=== PATIENT | male | born 1945 | race Caucasian/White ===

== ENCOUNTER 2021-12-14 01:25 | Emergency (ER) | payer MEDICARE ==
[~2021-12-14] VITALS: Ht 185.5 cm; Wt 102.0 kg
--- OUTSIDE RECORDS SUMMARY | 2021-12-14 01:34 | XMS REPORT | Clinical Summary ---
Author Organization Unknown Address Unknown Phone Unavailable Care Team Providers Care Sustain Engineer Name Role Phone Dr. Melissa MENCHACA DO Unavailable Pillo Joe Unavailable Unavailable Social History No social history listed. Problems SNOMED Problem Status Date Discovered Last Modifie d Date Encounter for screening for malignant neoplasm of colo n Active 10/26/2021 10/26/2021 Generalized anxiety disorder Active 08/01/2013 10/26/2021 Essential (primary) hypertension Active 12/26/19 10 10/26/2021 Mixed hyperlipidemia Active 12/26/2009 021 Encounter for immunization Active 10/19/2021 1 12/19/2020 Benign prostatic hyperplasia without lower urina ry tract symptoms Active 10/15/2020 10/19/2021 Acute maxillary sinusitis, unspecified Active 07/19/2021 [id number] Bilateral primary osteoarthritis of knee Active 04/15/2021 04/15/2021 Body mass index [BMI] 29.0-29.9, adult Active 04/15/2021 Peripheral vascular disease, unspecified Active 10/15/2020 10/16/2020 Shortness of breath Active 10/15/2020 10/15/20 Body mass index (BMI) 29.0-29.9, adult Active 10/15/2020 Other oysterman (current) drug therapy Active 04/01/2020 Unilateral inguinal hernia, without obstruction or gangrene, not specified as recurrent Active 12/19/2019 12/19/2019 [id number] Retention of urine, unspecified Active 0 12/19/2019 Screening for cancer of colon Active 04/17/2019 04/17/2019 Body Mass Index 28.0-28.9, adult Active 05/01/20 18 05/22/2019 Body mass index (BMI) 28.0-28.9, adult Active 05/22/2019 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 04/18/2018 Renal mass Active 04/17/2018 04/18/2018 253412886 Microscopic hematuria Active 04/11/201804/17 989367867 Benign essential microscopic hematuria Active 04/17/2019 Osteoarthritis of ankle and foot Active 06/09/20 16 06/09/2016 Primary osteoarthritis, right ankle and foot Active 06/09/2016 06/09/2016 Body Mass Index 29.0-29.9, adult Active 06/09/20 16 04/18/2018 Encounter for screening for malignant neoplasm of pros maki Active 01/11/2016 09/27/2017 Screening for prostate cancer Active 01/11/2016 09/27/2017 Atopic dermatitis, unspecified Active 09/29/2015 09/29/2015 Eczema Active 09/29/2015 09/29/2015 [id number] Generalized osteoarthritis - multiple sites, NEC Activ e 12/09/2014 01/09/2015 02112457 Hydronephrosis Active 09/19/2013 04/17/2018 [id number] Other hydronephrosis Active 09/19/2013 018 [id number] Generalized anxiety disorder Active 08/01/2013 05/22/2019 7380781 HTN Active 12/26/2009 05/22/2019 591536481 Mixed hyperlipidemia Active 12/26/2009 019 Medications Brand Strength Dose/Route/Frequency RxNorm Code Date Started Date Discontinued Status amLODIPine 10 mg oral tablet TAKE 1 TABLET EVERY DAY 349327 020 Current lisinopriL 10 mg oral tablet TAKE 1 TABLET EVERY DAY 320606 020 Current Bystolic 10 mg oral tablet Take 1 tablet by mouth once daily 362162 12/26/2009 Current meloxicam 15 mg oral tablet TAKE 1 TABLET EVERY DAY 419552 10/22/20 19 Current rosuvastatin 40 mg oral tablet TAKE 1 TABLET EVERY DAY 533349 12/19 Current ALPRAZolam 0.5 mg oral tablet take 1 tablet (0.5 m g) by oral route 2 times a day 724012 04/19/2021 Current Allergies No allergies listed. Procedures Code System Code Description Date Ordered Status CPT 23486 Collection of venous blood by venipunctur e 10/19/2021 completed CPT 06272 Fluad High Dose 10/19/2021 completed CPT 1000F Tobacco use assessed (CAD, CAP, COPD, PV) 1 (DM)4 10/26/2021 completed CPT 1036F Current tobacco non-user (CAD, CAP, COPD, PV)1 (DM)4 10/26/2021 completed CPT 3288F Falls risk assessment documented 10/26/20 21 completed Immunizations Date Vaccine Status CVX 05/06/2021 COVID-19, mRNA, LNP-S, PF, 100 mcg/0.5 mL dose C ompleted 207 10/19/2021 Influenza vaccine, quadrivalent, adjuvan ozzy (FLUAD QUAD [id number]) Completed 205 09/24/2019 Influenza, high dose seasonal Completed 13 5 07/15/2020 Influenza, high dose seasonal Completed 13 5 06/03/2021 SARS-COV-2 (COVID-19) vaccine, UNSPECIFIED Compl eted 213 01/11/2016 Prevnar 13 (Pneumococcal PCV 13) Completed 133 07/05/2012 Fluzone (3 + years dose) Completed 141 08/01/2013 Fluzone (3 + years dose) Completed 141 09/19/2018 Fluad pf Completed 168 08/01/2014 Fluzone High-Dose pf (>=65 yr) Completed 1 35 09/29/2015 Fluzone High-Dose pf (>=65 yr) Completed 1 35 11/18/2016 Fluzone High-Dose pf (>=65 yr) Completed 1 35 10/04/2017 Fluzone High-Dose pf (>=65 yr) Completed 1 35 08/27/2011 PNEUMOVAX 23 (Pneumococcal PPV23) Completed 33 04/11/2018 Adacel (Tdap) Cancelled 115 Vital Signs No vital signs listed. Assessment * E78.2 Mixed hyperlipidemia * I10 Essential (primary) hypertension * F41.1 Generalized anxiety disorder * Z12.11 Encounter for screening for malignant neoplasm of colon Plan of Treatment * Mixed hyperlipidemia MEDICATIONS: (no change to current medication regimen) (see today's med list) RE COMMENDATIONS given include: exercise, low cholesterol/low fat diet, and weight loss. FOLLOW-UP: Schedule a follow-up visit in 6 months. Smoking Status: Nons moker Patient encounter documented using a qualified (non-CCHIT) certified EHR FOLLOW-UP: Schedule a follow-up visit in 6 months. Make a follow up appointment for the following fasting blood work CMP FLP Urine pro Fasting lab work is to be completed in 6 months. prior to follow up appointment.. * Orders: 41484 - Established patient outpatient visit, Moderate MDM and/or 30-39 minutes 1000F - Tobacco use assessed (CAD, CAP, COPD, PV)1 (DM)4 1036F - Current tobacco non-user (CAD, CAP, COPD, PV)1 (DM)4 G8448 - Patient encounter documented using a qualified (non-CCHIT) certified EHR * Essential (primary) hypertension MEDICATIONS: (no change to current medication regimen) (see today's med list) RE COMMENDATIONS given include: perform routine monitoring of blood pressure with h ome blood pressure cuff, exercise, reduction of dietary salt intake, weight loss , and stress reduction. FOLLOW-UP: Schedule a follow-up visit in 6 months. [facility] maria elena Status: Nonsmoker * Orders: 3288F - Falls risk assessment documented * Generalized anxiety disorder MEDICATIONS: (no change to current medication regimen) (see today's med list) RE COMMENDATIONS given include: avoidance of caffeine and stress reduction. FOLLOW -UP: Schedule a follow-up visit in 6 months. * Encounter for screening for malignant neoplasm of colon REFUSALS: Although discussed, the patient declined the following: colon cancer screening of any kind.. * Other Prescriptions: [Refilled] amLODIPine 10 mg oral tablet [TAKE 1 TABLET EVERY DAY], #90 (ninety) tablets, Refills: 1 (one) [Refilled] lisinopriL 10 mg oral tablet [TAKE 1 TABLET EVERY DAY], #90 (ninety) tablets, Refills: 1 (one) [Refilled] Bystolic 10 mg oral tablet [Take 1 tablet by mouth once daily], #90 ( ninety) tablets, Refills: 1 (one) [Refilled] meloxicam 15 mg oral tablet [TAKE 1 TABLET EVERY DAY], #90 (ninety) t ablets, Refills: 1 (one) [Refilled] rosuvastatin 40 mg oral tablet [TAKE 1 TABLET EVERY DAY], #90 (ninety ) tablets, Refills: 1 (one) [Refilled] ALPRAZolam 0.5 mg oral tablet [take 1 tablet (0.5 mg) by oral route 2 times a day ], #180 (one hundred and eighty) tablets, Refills: 1 (one) Referrals No referral reasons listed. Functional Status No Functional Status Listed Mental Status * NEGATIVE Goals No Goals listed. Health Concerns No Health Concerns listed. Health Status Evaluations/Outcomes No Evaluations/Outcomes listed. Interventions No Interventions listed. Lab Test & Results Date Performed Test Result Status 10/22/2021 Comp. Metabolic Panel (14): Glucose 96 mg/dL completed 10/22/2021 Comp. Metabolic Panel (14): BUN 27 mg/dL completed 10/22/2021 Comp. Metabolic Panel (14): Creatinine 1.31 mg/d L completed 10/22/2021 Comp. Metabolic Panel (14): eGFR If NonAfricn Am 52 mL/min/1.73 completed 10/22/2021 Comp. Metabolic Panel (14): eGFR If Africn Am 60 mL/min/1.73 completed 10/22/2021 Comp. Metabolic Panel (14): BUN/Creatinine Ratio 21 completed 10/22/2021 Comp. Metabolic Panel (14): Sodium 141 mmol/L completed 10/22/2021 Comp. Metabolic Panel (14): Potassium 4.5 mmol/L completed 10/22/2021 Comp. Metabolic Panel (14): Chloride 105 mmol/L completed 10/22/2021 Comp. Metabolic Panel (14): Carbon Dioxide, Tota l 23 mmol/L completed 10/22/2021 Comp. Metabolic Panel (14): Calcium 10.0 mg/dL completed 10/22/2021 Comp. Metabolic Panel (14): Protein, Total 6.5 g /dL completed 10/22/2021 Comp. Metabolic Panel (14): Albumin 4.5 g/dL completed 10/22/2021 Comp. Metabolic Panel (14): Globulin, Total 2.0 g/dL completed 10/22/2021 Comp. Metabolic Panel (14): A/G Ratio 2.3 completed 10/22/2021 Comp. Metabolic Panel (14): Bilirubin, Total 0.6 mg/dL completed 10/22/2021 Comp. Metabolic Panel (14): Alkaline Phosphatase 97 IU/L completed 10/22/2021 Comp. Metabolic Panel (14): AST (SGOT) 21 IU/L completed 10/22/2021 Comp. Metabolic Panel (14): ALT (SGPT) 12 IU/L completed 10/22/2021 Lipid Panel: Cholesterol, Total 152 mg/dL completed 10/22/2021 Lipid Panel: Triglycerides 175 mg/dL compl eted 10/22/2021 Lipid Panel: HDL Cholesterol 47 mg/dL com pleted 10/22/2021 Lipid Panel: VLDL Cholesterol Brenton 30 mg/dL completed 10/22/2021 Lipid Panel: LDL Chol Calc (NIH) 75 mg/dL completed 10/22/2021 Lipid Panel: Comment: cancelled 10/22/2021 Prostate-Specific Ag: Prostate Specific Ag 3.8 n g/mL completed Test Code Code System Panel Description Date Ordered Note 22056 CPT Comprehensive metabo lic panel (Albumin, Bilirubin, Ca, CO2, Cl, Creatinine, Glu, alkaline phosphatas 10/19/2021 Signed off by Kimberly Pepe on 10-19-2021 46556 CPT Lipid panel (total cholesterol, HDL, trig lycerides) 10/19/2021 Signed off by Kimberly Pepe on 10-19-2021 43364 CPT Prostate specific antigen, total 10/19/20 Signed off by Kimberly Pepe on 10-19-2021 Encounter Diagnosis * Mixed hyperlipidemia Patient presents with mixed hyperlipidemia. Current treatment includes Crestor and a low cholesterol/low fat diet. Compliance with treatment has been poor; he skips some medication doses and does not follow a diet and exercise regimen. He denies experiencing any hypercholesterolemia related symptoms. Most recent lab tests include LDL: 75 (mg/dL) (10/19/2021), HDL: 47 (mg/dL) (10/19/2021), To moe Cholesterol: 152 (mg/dL) (10/19/2021), Triglycerides: 175 (mg/dL) (), VLDL Cholesterol: 30 (mg/dL) (10/19/2021). * Essential (primary) hypertension Current nonpharmacologic treatment includes low sodium diet and exercise. His c urrent cardiac medication regimen includes a beta-tevin, an BRAYAN inhibitor, and a calcium channel tevin. Review of his blood pressure log reveals systolics in the 120s and diastolics in the 70s. He is tolerating the medication well wit hout side effects. Compliance with treatment has been fair; he skips some medic ation doses due to forgetfulness and does not follow a diet and exercise regimen . * Generalized anxiety disorder With regard to the generalized anxiety disorder, his symptom complex includes ap prehension and insomnia. True panic attacks apparently do not occur. The frequ ency of symptoms is several times per week. Current treatment includes a schedu led (rather than p.r.n.) benzodiazepine. Previous attempts at treatment have in cluded a scheduled (rather than p.r.n.) benzodiazepine. He denies pertinent pas t medical history.
--- OUTSIDE RECORDS SUMMARY | 2021-12-14 01:34 | XMS REPORT | Clinical Summary ---
Author Organization Unknown Address Unknown Phone Unavailable Care Team Providers Care [employer] Weigher Name Role Phone Kimberly Pepe Unavailable Unavailable Social History No social history listed. Problems SNOMED Problem Status Date Discovered Last Modifie d Date Encounter for immunization Active 10/19/2021 1 12/19/2020 Mixed hyperlipidemia Active 12/26/2009 021 Essential (primary) hypertension Active 12/26/19 10 10/19/2021 Benign prostatic hyperplasia without lower urina ry tract symptoms Active 10/15/2020 10/19/2021 Acute maxillary sinusitis, unspecified Active 07/19/2021 Encounter for screening for malignant neoplasm of colo n Active 04/15/2021 04/15/2021 [id number] Bilateral primary osteoarthritis of knee Active 04/15/2021 04/15/2021 Generalized anxiety disorder Active 08/01/2013 04/15/2021 Body mass index [BMI] 29.0-29.9, adult Active 04/15/2021 Peripheral vascular disease, unspecified Active 10/15/2020 10/16/2020 Shortness of breath Active 10/15/2020 10/15/20 20 Body mass index (BMI) 29.0-29.9, adult Active 10/15/2020 Other halfway (current) drug therapy Active 04/01/2020 Unilateral inguinal hernia, without obstruction or gangrene, not specified as recurrent Active 12/19/2019 12/19/2019 [id number] Retention of urine, unspecified Active 0 12/19/2019 Screening for cancer of colon Active 04/17/2019 04/17/2019 Body Mass Index 28.0-28.9, adult Active 05/01/20 18 05/22/2019 Body mass index (BMI) 28.0-28.9, adult Active 05/22/2019 Renal mass Active 04/17/2018 04/18/2018 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 04/18/2018 162148240 Microscopic hematuria Active 04/11/201804/17 654944644 Benign essential microscopic hematuria Active 04/17/2019 Osteoarthritis of ankle and foot Active 06/09/20 16 06/09/2016 Primary osteoarthritis, right ankle and foot Active 06/09/2016 06/09/2016 Body Mass Index 29.0-29.9, adult Active 06/09/20 16 04/18/2018 Encounter for screening for malignant neoplasm of pros maki Active 01/11/2016 09/27/2017 Screening for prostate cancer Active 01/11/2016 09/27/2017 Atopic dermatitis, unspecified Active 09/29/2015 09/29/2015 Eczema Active 09/29/2015 09/29/2015 126058775 Generalized osteoarthritis - multiple sites, NEC Activ e 12/09/2014 01/09/2015 27129460 Hydronephrosis Active 09/19/2013 04/17/2018 69701439 Other hydronephrosis Active 09/19/2013 018 95633717 Generalized anxiety disorder Active 08/01/2013 05/22/2019 3334121 HTN Active 12/26/2009 05/22/2019 254410927 Mixed hyperlipidemia Active 12/26/2009 019 Medications Brand Strength Dose/Route/Frequency RxNorm Code Date Started Date Discontinued Status amLODIPine 10 mg oral tablet TAKE 1 TABLET EVERY DAY 352128 020 Current lisinopriL 10 mg oral tablet TAKE 1 TABLET EVERY DAY 781265 020 Current Bystolic 10 mg oral tablet Take 1 tablet by mouth once daily 370489 12/26/2009 Current meloxicam 15 mg oral tablet TAKE 1 TABLET EVERY DAY 466748 10/22/20 19 Current rosuvastatin 40 mg oral tablet TAKE 1 TABLET EVERY DAY 173614 12/19 Current ALPRAZolam 0.5 mg oral tablet Take 1 tablet by mouth twice daily 181241 10/22/2019 Current ALPRAZolam 0.5 mg oral tablet take 1 tablet (0.5 m g) by oral route 2 times a day 702607 04/19/2021 Current azithromycin 250 mg oral tablet take 2 tablets (500 mg) by oral route once daily for 1 day then 1 tablet (250 mg) by oral route once daily for 4 days 698614 07/19/2021 Current Medrol (Umer) 4 mg oral Tablet, Dose Pack take by oral route as directed per package instructions [id number] 07/19/2021 Current Allergies No allergies listed. Procedures Code System Code Description Date Ordered Status CPT 13316 Collection of venous blood by venipunctur e 10/19/2021 completed CPT 39261 Fluad High Dose 10/19/2021 completed Immunizations Date Vaccine Status CVX 05/06/2021 COVID-19, mRNA, LNP-S, PF, 100 mcg/0.5 mL dose C ompleted 207 10/19/2021 Influenza vaccine, quadrivalent, adjuvan ozzy (FLUAD QUAD [id number]) Completed 205 09/24/2019 Influenza, high dose seasonal [...] hyperlipidemia * I10 Essential (primary) hypertension * N40.0 Benign prostatic hyperplasia without lower urinary tract symptoms * Z23 Encounter for immunization Plan of Treatment * Mixed hyperlipidemia LABORATORY: Labs ordered to be performed today include, CMP, and lipid panel. * Orders: 87068 - Collection of venous blood by venipuncture 23713 - Comprehensive metabolic panel (Albumin, Bilirubin, Ca, CO2, Cl, Creatini ne, Glu, alkaline phosphatase, K, tot protein, ALT, AST, BUN) 21338 - Lipid panel (total cholesterol, HDL, triglycerides) * Essential (primary) hypertension * Benign prostatic hyperplasia without lower urinary tract symptoms LABORATORY: Labs ordered to be performed today include PSA. * Orders: 07225 - Prostate specific antigen, total * Encounter for immunization Immunizations MRE flu vaccine admin fee and Fluad High Dose * Orders: [id number] - Administration of influenza vaccine when no physician fee schedule servi ce on the same day Referrals No referral reasons listed. Functional Status No Functional Status Listed Mental Status * NEGATIVE Goals No Goals listed. Health Concerns No Health Concerns listed. Health Status Evaluations/Outcomes No Evaluations/Outcomes listed. Interventions No Interventions listed. Lab Results No lab results listed.
--- NOTE | 2021-12-14 02:15 | ED Cough/URI ---
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 Source: patient Exam Limitations: no limitations (DAJA MCDONALD STUDENT) History of Present Illness Date Seen by Provider: Dec 14, 2021 Time Seen by Provider: 02:00 Initial Comments Patient is a 76yoM with history of hyperlipidemia and hypertension who presents via private vehicle to ED with cc of cough and "raw throat". He awoke from sleep around 12:30-1am with cough and sore throat. He believes he has a hiatal hernia and describes heartburn symptoms. Patient ate chicken and dumplings for dinner and went to bed feeling fine. He denies diarrhea, otalgia, fever and shortness of air. He does report some nausea. He denies fever and sick contacts and has been vaccinated for Covid ~6 months ago. He quit smoking "many years ago" and does not drink alcohol. He lives at home with his sister who does not have any similar symptoms. Timing/Duration: just prior to arrival Severity/Quality: mild Associated Symptoms: cough, headache, sore throat (DAJA MCDONALD STUDENT) Allergies and Home Medications Allergies Coded Allergies: No Known Drug Allergies (Unverified , 12/14/21) Patient Home Medication List Home Medication List Reviewed: Yes (KOLBY MEHTA MD) Omeprazole (Omeprazole) 20 Mg Tab.rap.dr, 20 MG PO DAILY Prescribed by: KOLBY MEHTA on 12/14/21 034 Rivaroxaban (Xarelto) 20 Mg Tablet, 20 MG PO DAILY Prescribed by: KOLBY MEHTA on 12/14/21 0341 Review of Systems Review of Systems Constitutional: No chills, No diaphoresis EENTM: throat pain; No ear pain, No vision loss, No nose congestion Respiratory: cough; No hemoptysis Cardiovascular: No edema, No palpitations Gastrointestinal: No abdominal pain, No diarrhea, No hematemesis; heartburn; No melena; nausea; No vomiting Genitourinary: No dysuria, No frequency, No hematuria Musculoskeletal: No muscle pain, No muscle weakness Skin: no symptoms reported Psychiatric/Neurological: No Symptoms Reported Hematologic/Lymphatic: No Symptoms Reported Immunological/Allergic: no symptoms reported (AASHISHFarFariaAkinDAJA DEONTICS STUDENT) Past Esrvcoc-Qyuwin-Cmkbqq Hx Patient Social History Smoking Status: Former Smoker Substance use?: No Alcohol Use?: No (AASHISHFarFariaAkinPotential STUDENT) Immunizations Up To Date Influenza Vaccine Up-to-Date: Yes; Up-to-Date Second COVID19 Vaccination Jhonatan: STATES HAS HAD 2 COVID VACCINES (TeralyticsAkin,Bringrr) Past Medical History Surgery/Hospitalization HX: HTN HIGH CHOLESTEROL (AASHISHFarFariaAkinPotential STUDENT) Physical Exam Vital Signs - First Documented 12/14/21 01:40 Temp 36.2 Pulse 79 Resp 18 B/P (MAP) 128/78 (95) Pulse Ox 94 O2 Delivery Room Air (KOLBY MEHTA MD) Capillary Refill : Less Than 3 Seconds (AASHISHMyVRVIVIANEDAJA DEONTICS STUDENT) Height: '" Weight: lbs. oz. kg; 29.00 BMI Method: General Appearance: WD/WN, no apparent distress Eyes: Bilateral Eye Normal Inspection HEENT: PERRL/EOMI, pharynx normal; No pharyngeal erythema Neck: non-tender, full range of motion, supple, normal inspection Respiratory: chest non-tender, no respiratory distress, no accessory muscle use, wheezing Cardiovascular: normal peripheral pulses, no edema, no JVD, no murmur, irregularly irregular Gastrointestinal: normal bowel sounds, non tender, soft Extremities: normal range of motion, non-tender, normal inspection, no pedal edema, no calf tenderness, normal capillary refill Neurologic/Psychiatric: vp product management II-XII nml as tested, no motor/sensory deficits, alert, normal mood/affect, oriented x 3 Skin: normal color, warm/dry Lymphatic: no adenopathy (AASHISHMyVRDAJA PAN DEONTICS STUDENT) Progress/Results/Core Measures Suspected Sepsis SIRS Temperature: Pulse: 79 Respiratory Rate: 18 Blood Pressure 128 /78 Mean: 95 (AASHISHFarFariaAkin,DAJA DEONTICS STUDENT) SIRS Laboratory Tests 12/14/21 02:40: White Blood Count 8.9 (KOLBY MEHTA MD) Results/Orders Lab Results Laboratory Tests Test 12/14/21 02:40 Range/Units White Blood Count 8.9 4.3-11.0 10^3/uL Red Blood Count 4.60 4.30-5.52 10^6/uL Hemoglobin 14.6 13.3-17.7 g/dL Hematocrit 44 40-54 % Mean Corpuscular Volume 95 80-99 fL Mean Corpuscular Hemoglobin 32 25-34 pg Mean Corpuscular Hemoglobin Concent 33 32-36 g/dL Red Cell Distribution Width 12.9 10.0-14.5 % Platelet Count 162 130-400 10^3/uL Mean Platelet Volume 10.2 9.0-12.2 fL Immature Granulocyte % (Auto) 0 % Neutrophils (%) (Auto) 77 H 42-75 % Lymphocytes (%) (Auto) 14 12-44 % Monocytes (%) (Auto) 7 0-12 % Eosinophils (%) (Auto) 2 0-10 % Basophils (%) (Auto) 0 0-10 % Neutrophils # (Auto) 6.8 1.8-7.8 10^3/uL Lymphocytes # (Auto) 1.2 1.0-4.0 10^3/uL Monocytes # (Auto) 0.7 0.0-1.0 10^3/uL Eosinophils # (Auto) 0.1 0.0-0.3 10^3/uL Basophils # (Auto) 0.0 0.0-0.1 10^3/uL Immature Granulocyte # (Auto) 0.0 0.0-0.1 10^3/uL Sodium Level 146 H 135-145 MMOL/L Potassium Level 4.1 3.6-5.0 MMOL/L Chloride Level 106 98-107 MMOL/L Carbon Dioxide Level 23 21-32 MMOL/L Anion Gap 17 H 5-14 MMOL/L Blood Urea Nitrogen 23 H 7-18 MG/DL Creatinine 1.40 H 0.60-1.30 MG/DL Estimat Glomerular Filtration Rate 52 BUN/Creatinine Ratio 16 Glucose Level 115 H 70-105 MG/DL Calcium Level 10.0 8.5-10.1 MG/DL Troponin I < 0.028 <0.028 NG/ML (KOLBY MEHTA MD) My Orders Orders - KOLBY MEHTA MD Ed Iv/Invasive Line Start (12/14/21 02:20) Cbc With Automated Diff (12/14/21 02:20) Basic Metabolic Panel (12/14/21 02:20) Ekg Tracing (12/14/21 02:20) Chest 1 View, Ap/Pa Only (12/14/21 02:20) Troponin I Hallie (12/14/21 02:20) Sucralfate Tablet (Carafate Tablet) (12/14/21 02:30) Antacid Suspension (Mylanta Suspension (12/14/21 02:30) Lidocaine 2% Viscous 15 Ml (Xylocaine Vi (12/14/21 02:30) Ondansetron Injection (Zofran Injectio (12/14/21 03:45) Pantoprazole Injection (Protonix Injecti (12/14/21 03:45) (KOLBY MEHTA MD) Medications Given in ED (KOLBY MEHTA MD) Vital Signs/I&O 12/14/21 12/14/21 12/14/21 01:40 01:40 04:59 Temp 36.2 36.2 Pulse 79 93 Resp 18 20 B/P (MAP) 128/78 (95) 116/73 Pulse Ox 94 95 O2 Delivery Room Air Room Air Room Air (KOLBY MEHTA MD) Vital Signs/I&O Capillary Refill : Less Than 3 Seconds (DAJA MCDONALD MED STUDENT) Blood Pressure Mean: 95 Progress Note #1: Time: 03:31 Progress Note re-checked, feels about the same. Labs look good. He states feels slightly better in the throat but still a little nauseated, heartburn feeling. Talked to him about the Afib and need to follow up BRITANY with his PCP. Will start him on xarelto for stroke prophylaxis, Going to give him protonix and zofran here and re-evaluate in about 20 minutes. Progress Note #2: Time: 04:18 Progress Note states hes starting to feel better, still a little queasy. will let him sip on some water a few minutes and then get him discharged home. (KOLBY MEHTA MD) ECG Initial ECG Impression Date: Dec 14, 2021 Initial ECG Impression Time: 02:30 Initial ECG Rate: 93 Initial ECG Rhythm: A Fib/Flutter Initial ECG Impression: Atrial Fibrillation Initial ECG Comparisson: No Previous ECG Available (KOLBY MEHTA MD) Diagnostic Imaging Diagonstic Imaging: Xray Plain Films/CT/US/NM/MRI: chest Comments cardiomegaly, clear lungs, no effusions or infiltrates, normal mediastinal structures; Interpreted by me. Reviewed: Reviewed by Me (KOLBY MEHTA MD) Departure Impression Primary Impression: GERD (gastroesophageal reflux disease) Qualified Codes: K21.9 - Gastro-esophageal reflux disease without esophagitis Additional Impression: New onset atrial fibrillation Disposition: 01 HOME, SELF-CARE Condition: Stable Departure-Patient Inst. Decision time for Depature: 03:34 (KOLBY MEHTA MD) Referrals: RANJIT CHRISTENSEN DO (PCP/Family) Primary Care Physician Patient Instructions: Atrial Fibrillation (DC), Acid Reflux and Gastroesophageal Reflux Disease in Adults Add. Discharge Instructions: Please call Dr Christensen' office today for a follow up appointment soon this week, regarding the heartburn symptoms as well as the Irregular Heartbeat - Atrial Fibrillation. We have prescribed a blood thinner medication caller Edrelcorona, you need take this once a day with an evening meal (it has to be taken with food). This may cause you to bruise more easily. You can pick this up at [facility] on in [place]. We have also prescribed an acid credit analysis manager medication called Omeprazole. You will need to take this once a day. Come back to the Emergency Department if you have any worsening symptoms or new or emergent concerns, especially bloody nose or blood in your stool or urine. Scripts Rivaroxaban (Xarelto) 20 Mg Tablet 20 MG PO DAILY for 30 Days, #30 TAB with evening meal Prov: KOLBY MEHTA MD 12/14/21 Omeprazole (Omeprazole) 20 Mg Tab.rap. 20 MG PO DAILY for 30 Days, #30 EA Prov: KOLBY MEHTA MD 12/14/21 Verification and Attestation of Medical Student E/M Service A medical student performed and documented this service in my presence. I reviewed and verified all information documented by the medical student and made modifications to such information, when appropriate. I personally performed the physical exam and medical decision making. Kolby Mehta, Dec 14, 2021,03:34 (KOLBY MEHTA MD) DAJA MCDONALD MED STUDENT Dec 14, 2021 02:15 KOLBY MEHTA MD Dec 14, 2021 02:47
[2021-12-14] MEDS ORDERED: SUCRALFATE 1 GM (CARAFATE) TAB PO ONE (02:30)
[2021-12-14] MEDS ORDERED: LIDOCAINE 2% VISCOUS 15 ML UDC PO ONE (02:30)
[2021-12-14] MEDS ORDERED: ANTACID SUSP 30 ML UDC (MYLANTA) PO ONE (02:30)
[2021-12-14 02:57] LABS: BASOPHILS % (AUTO) 0 % (0-10); EOSINOPHILS # (AUTO) 0.1 10^3/uL (0.0-0.3); EOSINOPHILS % (AUTO) 2 % (0-10); HEMATOCRIT 44 % (40-54); HEMOGLOBIN 14.6 g/dL (13.3-17.7); LYMPHOCYTES # (AUTO) 1.2 10^3/uL (1.0-4.0); LYMPHOCYTES % (AUTO) 14 % (12-44); MEAN CORPUSCULAR HEMOGLOBIN 32 pg (25-34); MEAN CORPUSCULAR HGB CONC 33 g/dL (32-36); MEAN CORPUSCULAR VOLUME 95 fL (80-99); MEAN PLATELET VOLUME 10.2 fL (9.0-12.2); MONOCYTES # (AUTO) 0.7 10^3/uL (0.0-1.0); MONOCYTES % (AUTO) 7 % (0-12); NEUTROPHILS # (AUTO) 6.8 10^3/uL (1.8-7.8); NEUTROPHILS % (AUTO) 77 % (42-75); PLATELET COUNT 162 10^3/uL (130-400); WHITE BLOOD COUNT 8.9 10^3/uL (4.3-11.0)
[2021-12-14 03:07] LABS: CHLORIDE 106 MMOL/L (98-107); POTASSIUM 4.1 MMOL/L (3.6-5.0); SODIUM 146 MMOL/L (135-145)
[2021-12-14 03:09] LABS: GLUCOSE 115 MG/DL (70-105)
[2021-12-14 03:11] LABS: CARBON DIOXIDE 23 MMOL/L (21-32)
[2021-12-14 03:13] LABS: GFR ESTIMATED 52
[2021-12-14 03:14] LABS: BUN/CREATININE RATIO 16
[2021-12-14] MEDS ORDERED: RIVA20TA PO (03:41)
[2021-12-14] MEDS ORDERED: OMEP-401 PO (03:41)
[2021-12-14] MEDS ORDERED: ONDANSETRON 4 MG/2 ML (SDV) Z0FRAN IVP ONE (03:45)
[2021-12-14] MEDS ORDERED: PANTOPRAZOLE 40 MG (PROTONIX) VIAL IV ONE (03:45)
[2021-12-14 04:59] VITALS: BP 116/73
--- NOTE | 2021-12-14 07:00 | Diagnostic Imaging Report ---
INDICATION: Short of air, cough and nausea. FINDINGS: The heart is enlarged but no vascular congestion, edema, pneumonia, effusion or pneumothorax. IMPRESSION: Prominence of the cardiac silhouette but no acute appearing pulmonary abnormality. Dictated by: Dictated on workstation # [id number]
== END 2021-12-14 04:59 | disposition home or self-care (01) ==
LOC: ER 01:31
DX: K21.9 Gastro-esophageal reflux disease without esophagitis (principal); I48.91 Unspecified atrial fibrillation; I10 Essential (primary) hypertension
CPT/HCPCS: 36415; 71045; 80048; 84484; 85025; 93005